=== PATIENT | male | born 1990 ===

== ENCOUNTER 2021-05-03 16:54 | Emergency (ER) | payer SELFPAY ==
--- NOTE | 2021-05-03 21:37 | Emergency Department Report ---
ED General Adult HPI - General Chief complaint: Urogenital-Male Stated complaint: GENITAL PAIN Time Seen by Provider: 05/03/21 21:31 Source: patient Mode of arrival: Ambulatory Limitations: No Limitations - History of Present Illness Initial comments: 31-year-old male patient presents to the emergency department with complaints of "an infection" to his penis and left testicular pain for 2 days. No preceding fall, trauma, or injury. Patient has not taken any medications for his symptoms. No history of similar symptoms. Patient is sexually active. Denies fever, chills, testicular swelling, penile discharge, abdominal pain, urinary retention. Denies all other complaints at this time. - Related Data Previous Rx's Medication Instructions Recorded Last Taken Type Valacyclovir HCl [Valacyclovir] 1,000 mg PO BID 7 Days tablet 05/04/21 Unknown Rx Allergies Allergy/AdvReac Type Severity Reaction Status Date / Time No Known Allergies Allergy Verified 05/03/21 21:29 ED Review of Systems ROS: Stated complaint: GENITAL PAIN Other details as noted in HPI Other: GENERAL: Negative for fever. CARDIOVASCULAR: Negative for chest pain. PULMONARY: Negative for shortness of breath. GASTROINTESTINAL: Negative for abdominal pain. GENITOURINARY: Positive for rash and testicular pain. MUSCULOSKELETAL: Negative for back pain. NEUROLOGICAL: Negative for headache. INTEGUMENTARY: Negative for rash. ED Past Medical Hx - Past Medical History Previous Medical History?: No - Medications Home Medications: Home Medications Medication Instructions Recorded Confirmed Last Taken Type Valacyclovir HCl [Valacyclovir] 1,000 mg PO BID 7 Days tablet 05/04/21 Unknown Rx ED Physical Exam - General Limitations: No Limitations - Other Other exam information: General: Awake, appropriately interactive, no acute distress. Neck: Supple. Full range of motion intact. Cardiovascular: Normal peripheral perfusion. Pulmonary: No respiratory distress. Patient is speaking normally without use of accessory muscles. 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 Multiple tender erythematous vesicular lesions to the dorsal surface of the penis. No evidence of inguinal hernia. Left testicular tenderness without obvious swelling or asymmetry. No blood or discharge at the urethral meatus. Uncircumcised. Skin: No apparent rashes or lesions. Neurological: No facial asymmetry. Speech is clear. Follows commands. Patient is alert and oriented. Musculoskeletal: Moves all four extremities spontaneously with normal range of motion. Psych: Cooperative. Appropriate mood and affect. ED Course Vital Signs 05/03/21 21:28 Temperature 98.5 F Pulse Rate 58 L Respiratory 18 Rate Blood Pressure 162/93 O2 Sat by Pulse 98 Oximetry ED Medical Decision Making - Medical Decision Making Differential diagnosis including but not limited to: herpes genitalis, te sticular torsion, syphilis, urinary tract infection On reevaluation, patient remains stable. Urinalysis is unremarkable. Syphilis RPR is negative. Testicular ultrasound without acute process. History and exam findings suggestive of genital herpes infection. Patient will be started on Valacyclovir. Referred to primary care provider for close outpatient follow-up as well as local health department for full STD panel. Patient expressed understanding and is agreeable to plan of care. Disease transmission precautions discussed. Strict return precautions provided. Repeat exam is unremarkable and benign. History, exam, diagnostic testing, and current condition do not suggest worrisome pathology to warrant further testing, continued ED treatment, admission, or surgical evaluation at this point. Given the low probability of a significant medical illness, it would be more likely to result in harm than benefit to perform further testing at this stage. Discussed findings, presumptive diagnosis, need for follow-up and specific signs/symptoms that should prompt immediate return to the emergency department. Instructions were explained in detail to the patient in addition to giving written discharge information. Patient expressed understanding and was given the opportunity to ask questions, all of which were satisfactorily answered prior to discharge home. Critical care attestation.: If time is entered above; I have spent that time in minutes in the direct care of this critically ill patient, excluding procedure time. ED Disposition Clinical Impression: Rash of penis Disposition: HOME / SELF CARE / HOMELESS Is pt being admited?: No Does the pt Need Aspirin: No Condition: Stable Instructions: Genital Herpes Additional Instructions: Urinalysis, ultrasound, and blood work are within normal limits. Your symptoms are suggestive of genital herpes. You will need outpatient testing for confirmation. Take Valacyclovir as directed. Use barrier protection when engaging in sexual intercourse. Follow-up with primary care provider this week. Call tomorrow to schedule appointment. See referral information below. Follow-up with local health department for outpatient STD testing and treatment. See referral information below. Return to the emergency department immediately for new or worsening symptoms. Prescriptions: Valacyclovir HCl [Valacyclovir] 1,000 mg PO BID 7 Days tablet Referrals: ROSA BEAVERS MD [Staff Physician] - 3-5 Days [facility] [Provider Group] - 3-5 Days [facility] [Outside] - 3-5 Days Time of Disposition: 01:29
[2021-05-03 21:42] VITALS: BP 162/93
[2021-05-03 21:50] LABS: Bilirubin,Urine NEG (Negative); Blood,Urine NEG (Negative); Color,Urine Yellow (Yellow); Mucus,Urine FEW /HPF; Protein,Urine <15 mg/dL mg/dL (Negative); WBC,Urine < 1.0 /HPF (0.0-6.0)
--- NOTE | 2021-05-04 01:27 | Ultrasound Report ---
Scrotal ultrasound INDICATION: Left scrotal pain COMPARISON: None FINDINGS: Both testicles appear within normal limits with good blood flow seen bilaterally. No epidid ymal abnormalities are seen. No hydroceles are noted. IMPRESSION: Negative study Signer Name: Santos Voss MD Signed: 05/04/2021 1:23 AM Workstation Name: [id number]
== END 2021-05-04 02:00 | disposition home or self-care (01) ==
LOC: ED 16:54
DX: R21 Rash and other nonspecific skin eruption (principal); N50.812 Left testicular pain
CPT/HCPCS: 36415; 81001; 86592; 93975; 99284